=== PATIENT | male | born 1990 | race Caucasian/White ===

== ENCOUNTER → 2019-10-23 11:42 | Outpatient (BNVA) | payer BC, SELFPAY | PROVIDERS: Family Provider Family Medicine; Visit Provider Family Medicine | DX: R05 Cough (principal); J06.9 Acute upper respiratory infection, unspecified; B97.89 Other viral agents as the cause of diseases classified elsewhere; R68.89 Other general symptoms and signs | CPT/HCPCS: 87804 ==

== ENCOUNTER → 2020-03-13 09:52 | Outpatient (BNVA) | payer BC, SELFPAY | PROVIDERS: Family Provider Family Medicine; Visit Provider Nurse Practitioner Family | DX: R53.83 Other fatigue (principal); R73.9 Hyperglycemia, unspecified; R59.1 Generalized enlarged lymph nodes; H61.21 Impacted cerumen, right ear | CPT/HCPCS: 80053; 80061; 82306; 82607; 83036; 84403; 84443; 85025 ==

== ENCOUNTER 2022-12-11 08:33 | Outpatient (CLI) | payer BC, SELFPAY ==
--- NOTE | 2022-12-11 08:43 | MR_ITS ---
WS: [id number] MRI HEAD WITH CONTRAST WITH ATTENTION TO THE INTERNAL AUDITORY CANALS TECHNIQUE: Sagittal T1, T2 axial, T2 axial flair, axial susceptibility weighted imaging, axial diffus ion weighted images, and coronal T2 images were obtained. Pre and post T1 axial and post T1 coronal i mages. ADC and FSPGR images. Post gadolinium images with attention to the internal auditory canals. A xial fiesta imaging. CLINICAL INFORMATION: unilateral hearing loss COMPARISON: None. FINDINGS: No evidence of restricted diffusion to suggest acute ischemia. Ventricular system and basal cisterns are patent. Normal posterior fossa. Normal vascular flow voids at the skull base. No extra axial flui d collections. No evidence of mass or mass effect. Paranasal sinuses and mastoid air cells are well a erated. No hemosiderin on the susceptibility weighted images. Proximal 7th and 8th cranial nerves appear normal. Normal trigeminal nerve root entry zones. No evide nce of enhancing IAC or CP angle mass. Normal optic chiasm and pituitary infundibulum. No abnormal ga dolinium enhancement. Normal dural venous sinuses. 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 MR/MR iac's wo/w con* [id number] IMPRESSION: 1. No evidence of restricted diffusion to suggest acute ischemia. 2. No suspicious intracranial signal abnormalities. No hemosiderin on the susc eptibility weighted images. 3. Proximal 7th and 8th cranial nerves are normal in appearance. Normal trigem inal nerve root entry zones. 4. Paranasal sinuses and mastoid air cells well aerated. 5. No abnormal intracranial enhancement.
[2022-12-11] MEDS: gadobenate dimeglumine 20 mL vial IV (10:24)
== END 2022-12-11 08:34 | disposition home or self-care (01) ==
PROVIDERS: PCP Family Medicine; Visit Provider Otolaryngology
DX: H93.11 Tinnitus, right ear (principal); H90.71 Mixed conductive and sensorineural hearing loss, unilateral, right ear, with unrestricted hearing on the contralateral side
CPT/HCPCS: 70553; A9577